=== PATIENT | male | born 1990 | race Caucasian/White ===

== ENCOUNTER 2020-11-28 12:14 | Emergency (ER) | payer OTHER ==
[~2020-11-28] VITALS: Ht 185.4 cm; Wt 113.4 kg
[~2020-11-28 12:14] MED LIST: DIPH12.5EL PO; LORA1 PO; PRED10 PO; PRED20 PO; [UNRECOGNIZED DRUG - OTHER] OD
[2020-11-28] MEDS ORDERED: ESCI20 PO (12:33)
[2020-11-28] MEDS ORDERED: BENZ100A PO (14:12)
[2020-11-28] MEDS ORDERED: ONDA4 PO (14:12)
== END 2020-11-28 14:20 | disposition home or self-care (01) ==
LOC: ER 12:14
DX: U07.1 COVID-19 (principal); Z23 Encounter for immunization
CPT/HCPCS: 96375; 99284; J1885; J2405; M0243; Q0243

== ENCOUNTER 2023-10-05 08:18 | Emergency (ER) | payer OTHER ==
[~2023-10-05] VITALS: Ht 185.4 cm; Wt 108.9 kg
[~2023-10-05 08:18] MED LIST changes: +BENZ100A PO; +ESCI20 PO; +IBUP800 PO; +ONDA4 PO; +Robaxin750 MG PO
[2023-10-05 08:26] VITALS: BP 126/85
[2023-10-05] MEDS ORDERED: Dexamethasone Sod Phos 10 MG/ML 1ML VIAL PO ONE (08:45)
[2023-10-05] MEDS ORDERED: TRAM50 PO (08:48)
[2023-10-05] MEDS ORDERED: SULTRIDS PO (08:48)
[2023-10-05] MEDS ORDERED: Trimethoprim/Sulfamethoxazole DS Tab PO ONE (08:50)
== END 2023-10-05 09:40 | disposition home or self-care (01) ==
LOC: ER 08:18
DX: L03.114 Cellulitis of left upper limb (principal); Z79.899 Other long term (current) drug therapy
CPT/HCPCS: 99282; A9270; J1100

== ENCOUNTER 2023-10-08 09:57 | Emergency (ER) | payer OTHER ==
[~2023-10-08] VITALS: Ht 185.4 cm; Wt 108.9 kg
[~2023-10-08 09:57] MED LIST changes: +SULTRIDS PO; +TRAM50 PO
[2023-10-08 10:16] VITALS: BP 167/99
[2023-10-08] MEDS ORDERED: BUSPIRONE HCL10 M6 PO (10:17)
[2023-10-08] MEDS ORDERED: HYDROcodone 7.5-APAP 325 TAB PO ONE (10:50)
[2023-10-08] MEDS ORDERED: Norco 5-325 Ta1 EACH PO (10:54)
[2023-10-08] MEDS ORDERED: Ketorolac Tromethamine 30mg Vial IM ONE (10:55)
== END 2023-10-08 11:25 | disposition home or self-care (01) ==
LOC: ER 09:57
DX: M25.511 Pain in right shoulder (principal); Z79.899 Other long term (current) drug therapy
CPT/HCPCS: 73030; 96372; 99283-25; A9270; J1885

== ENCOUNTER 2024-08-01 12:30 | Emergency (ER) | payer OTHER ==
[~2024-08-01] VITALS: Ht 185.4 cm; Wt 108.9 kg
[~2024-08-01 12:30] MED LIST changes: +BUSPIRONE HCL10 M6 PO; +Norco 5-325 Ta1 EACH PO
[2024-08-01 12:35] VITALS: BP 183/121
[2024-08-01] MEDS ORDERED: Ketorolac Tromethamine 15mg Vial IV ONE (12:45)
[2024-08-01 13:13] LABS: BASOPHILS ABSOLUTE AUTO 0.06 K/mm3 (0.00-0.23); BASOPHILS PERCENT AUTO 1 % (0-2); EOSINOPHILS ABSOLUTE AUTO 0.08 K/mm3 (0.00-0.68); EOSINOPHILS PERCENT AUTO 1 % (0-6); Hematocrit 45.2 % (37.0-53.0); IMMATURE GRAN ABSOLUTE AUTO 0.01 K/mm3 (0.00-0.10); IMMATURE GRAN PERCENT AUTO 0 % (0-1); LYMPHOCYTES ABSOLUTE AUTO 2.38 K/mm3 (0.84-5.20); LYMPHOCYTES PERCENT AUTO 27 % (21-46); MONOCYTES ABSOLUTE AUTO 0.61 K/mm3 (0.16-1.47); MONOCYTES PERCENT AUTO 7 % (4-13); Mean Corpuscular HGB 30.6 pg (26.0-34.0); Mean Corpuscular HGB Conc 35.4 g/dL (31.5-36.5); Mean Corpuscular Volume 86 fL (80-100); Mean Platelet Volume 9.3 fL (9.1-12.4); NEUTROPHILS ABSOLUTE AUTO 5.65 K/mm3 (1.96-9.15); NEUTROPHILS PERCENT AUTO 64 % (41-73); Platelet Count 265 K/mm3 (150-400); RDW Coefficient Variation 12.9 % (11.7-14.2); RDW Standard Deviation 40.2 fL (35.1-46.3); Red Blood Cell Count 5.23 M/mm3 (4.30-5.90); White Blood Cell Count 8.79 K/mm3 (4.00-11.30)
[2024-08-01 13:42] LABS: Albumin, Blood 4.5 g/dL (3.4-5.0); Albumin/Globulin Ratio 1.1 (0.8-1.8); Bilirubin, Total 0.7 mg/dL (0.1-1.0); Bun/Creatinine Ratio 12.3 (12.0-20.0); C-REACTIVE PROTEIN, EXT RANGE 1.23 mg/dL (0.000-0.300); Calcium, Blood 9.3 mg/dL (8.5-10.1); Creatinine, Blood 0.81 mg/dL (0.60-1.20); Globulin, Blood 4.2 g/dL (2.2-4.0); Potassium, Blood 3.6 mmol/L (3.5-5.5); Total Protein, Blood 8.7 g/dL (6.4-8.2)
== END 2024-08-01 15:02 | disposition home or self-care (01) ==
LOC: ER 12:30
PROVIDERS: Physician Assistant
DX: M25.531 Pain in right wrist (principal); Z79.899 Other long term (current) drug therapy
CPT/HCPCS: 80053; 85025; 85651; 86140; 93971; 96374; 99283-25; J1885